=== PATIENT | male | born 1955 | race Caucasian/White ===

== ENCOUNTER → 2024-05-07 10:22 | Outpatient (REF) | payer MEDICARE, OTHER, SELFPAY | LOC: HWRAD 10:22 | PROVIDERS: ATTENDING PHYSICIAN Physician Assistant | DX: M25.562 Pain in left knee (principal) | CPT/HCPCS: 73564 ==

== ENCOUNTER → 2024-08-21 10:11 | Outpatient (REF) | payer MEDICARE, OTHER, SELFPAY | LOC: HWRCS 10:11 | PROVIDERS: ATTENDING PHYSICIAN Internal Medicine Interventional Cardiology; FAMILY PHYSICIAN Family Medicine | DX: I10 Essential (primary) hypertension (principal); E78.2 Mixed hyperlipidemia; R73.09 Other abnormal glucose; M79.89 Other specified soft tissue disorders; R53.83 Other fatigue; R06.09 Other forms of dyspnea | CPT/HCPCS: 93306 ==

== ENCOUNTER 2024-12-07 06:34 | Day surgery (SDC) | payer MEDICARE, OTHER, SELFPAY ==
[2024-12-07] VITALS (15 sets, daily range): BP systolic 110–149; BP diastolic 55–99; BMI 37.0
[2024-12-07 07:15] LABS: Hematocrit 41.0 % (39.0-52.0); Hemoglobin 14.3 g/dL (13.0-18.0); Mean Corp Hgb Conc. 34.9 g/dL (33.0-37.0); Mean Corpuscular Volume 86.7 fL (80.0-94.0); Platelet Count 251 10^3/uL (130-400); Red Cell Dist. Width 13.2 % (11.5-14.5)
[2024-12-07] MEDS: LOW STRENGTH ASPIRIN 81 MG PO (07:20)
[2024-12-07 08:19] LABS: Blood Urea Nitrogen 15 mg/dl (9-20); Calcium 9.3 mg/dl (8.4-10.2); Carbon Dioxide 25 mmol/L (22-30); Chloride 105 mmol/L (98-107); Estimated Creatinine Clearance 89 ml/min; Glucose 104 mg/dl (70-99); Potassium 3.8 mmol/L (3.5-5.1); Sodium 137 mmol/L (135-145); eGFR > 60.00
--- NOTE | 2024-12-07 13:03 | ITS.CL.CATH ---
[facility] - Catheterization
Cardiac Catheterization
Procedure Report:
LEFT HEART CATHETERIZATION
Date of Procedure: December 07, 2024
Referring: Arabella Gonsalez MD, [facility], [facility]
PROCEDURES:
1. Left heart catheterization, coronary angiogram.
2. Moderate sedation.
INDICATION: Abnormal stress test
ACCESS: Right radial artery, 6Fr. sheath, under US guidance.
HEMODYNAMICS : (mmHg)
AO (s/d) : 103/64
LVEDP : 32
No significant gradient across the aortic valve to suggest aortic stenosis.
CORONARY FINDINGS
DOMINANCE: Right
LEFT MAIN: The left main artery is a large-caliber vessel which gives rise to the left anterior descending artery and the left circumflex artery. There is minimal luminal irregularities.
LEFT ANTERIOR DESCENDING: The left anterior descending artery is a large-caliber vessel which gives rise to multiple small caliber diagonal branches. There is 40-50% proximal LAD stenosis at the takeoff of a large septal and a small to medium
caliber diagonal branch. Otherwise there is mild diffuse atherosclerotic disease.
CIRCUMFLEX: The left circumflex artery is a medium caliber vessel which gives rise to a medium caliber obtuse marginal branch there is 30-40 percent ostial OM1 stenosis. There are left to right collaterals from the OM branch.
RIGHT CORONARY ARTERY: The right coronary artery is a large-caliber vessel which gives rise to a right posterior descending artery and a posterolateral branch. The distal RCA is subtotally occluded with robust [id number] collaterals. There is
mild diffuse atherosclerotic plaque otherwise.
SEDATION: 27 minutes of procedural sedation was utilized. IV Midazolam and IV Fentanyl were administered. An independent medical lab specialist was present to assist with and help manage the patient's level of consciousness and physiologic status.
RADIATION SUMMARY: Fluoro Time (min): 6.4, Dose (mGy): 31.98, DAP (Gy.cm2) : 503.98
Closure Device: There were no immediate intra-procedural complications. The sheath was pulled in the circus laborer and a vascular-band applied to the right wrist for radial artery hemostasis using the patent hemostasis technique.
CONCLUSIONS
1. No obvious obstructive coronary artery disease.
2. 40 to 50% proximal LAD stenosis at the takeoff of a large septal branch and a small to medium caliber diagonal branch.
3. Medium caliber obtuse marginal branch with 30 to 40% ostial OM1 stenosis.
4. Significantly elevated LVEDP at 32 mmHg.
RECOMMENDATIONS
1. Wean radial band per protocol. Monitor right hand perfusion and for bleeding from the radial site following removal of the vascular-band following trans-radial access.
2. Continue aggressive medical therapy and risk factor modification for secondary CAD prevention.
3. Hydrate with normal saline to mitigate the risk of contrast-induced acute kidney injury.
4. Follow-up with Dr. Arabella Gonsalez MD, FACC, FSCAI
Arabella Gonsalez MD, FACC, FSCAI
== END 2024-12-07 12:30 | disposition home or self-care (01) ==
LOC: CATH 06:34
PROVIDERS: ATTENDING PHYSICIAN Internal Medicine Interventional Cardiology; FAMILY PHYSICIAN Family Medicine
DX: I25.10 Atherosclerotic heart disease of native coronary artery without angina pectoris (principal); R94.39 Abnormal result of other cardiovascular function study; I10 Essential (primary) hypertension; M79.89 Other specified soft tissue disorders; E78.2 Mixed hyperlipidemia; Z79.82 Long term (current) use of aspirin; Z79.899 Other long term (current) drug therapy
CPT/HCPCS: 99152; 99153; 80048; 85027; 93458; C1769; C1894; Q9967